=== PATIENT | female | born 1965 | race Caucasian/White ===

== ENCOUNTER 2021-11-03 05:38 | Day surgery (SDC) | payer OTHER ==
[2021-10-29 09:39] LABS: Mean Corpuscular Hemoglobin 32.3 pg (27.0-33.0); Mean Corpuscular Volume 92.2 fl (81.6-98.3); Mean Platelet Volume 11.5 fl (7.4-10.4); Platelet Count 193 10x3/uL (150-450); RBC Distribution Width 12.4 % (11.5-14.5); Red Blood Cell (RBC) Count 4.64 10x6/uL (3.90-5.03); White Blood Cell (WBC) Count 4.3 10x3/uL (3.5-10.5)
[2021-11-01 15:52] VITALS: BMI 38.9
[2021-11-03] MEDS ORDERED: Lidocaine 0.5%/Epinephrine 1:200,000 50 ml Vial ONE (06:39)
[2021-11-03] MEDS ORDERED: Lidocaine 1% w/Epinephrine 1:100K 20 ML VIAL ONE ×2 (06:40)
[2021-11-03] MEDS ORDERED: Ondansetron PF 4 MG/2 ML Vial ONE (06:46)
[2021-11-03] MEDS ORDERED: Dexamethasone 20 MG/5 ML VIAL ONE (06:46)
[2021-11-03] MEDS ORDERED: PROPOFOL 20 ML ONE (06:46)
[2021-11-03] MEDS ORDERED: Fentanyl 100 MCG/2 ML VIAL ONE ×2 (06:46→08:56)
[2021-11-03] MEDS ORDERED: Ketorolac Tromethamine 30 MG/ML VIAL ONE (06:46)
[2021-11-03] MEDS ORDERED: Midazolam HCl 2 mg/2 ml Vial ONE ×2 (06:46→07:04)
[2021-11-03] MEDS ORDERED: Lidocaine 1% MPF 2 ML VIAL ONE (06:52)
[2021-11-03] MEDS ORDERED: CEFAZOLIN 2 GM VIAL ONE (07:27)
[2021-11-03] MEDS ORDERED: Bupivacaine HCl 0.5%/Epinephrine 1:200,000/PF 30 ml Vial ONE (07:50)
[2021-11-03] MEDS ORDERED: HYDROcodone/Acetaminophen 5/325 mg Tablet ONE (10:08)
== END 2021-11-03 12:00 | disposition home or self-care (01) ==
LOC: CSHSDC 05:38
PROVIDERS: ATTEND Obstetrics & Gynecology
PROC: 0JQC0ZZ Repair Pelvic Region Subcutaneous Tissue and Fascia, Open Approach (ICD-10-PCS; principal; 2021-11-03)
DX: N81.6 Rectocele (principal); N81.10 Cystocele, unspecified; M32.9 Systemic lupus erythematosus, unspecified; M79.7 Fibromyalgia; G35 Multiple sclerosis; E11.9 Type 2 diabetes mellitus without complications; Z79.899 Other long term (current) drug therapy; Z88.0 Allergy status to penicillin; Z90.710 Acquired absence of both cervix and uterus; Z20.822 Contact with and (suspected) exposure to COVID-19
CPT/HCPCS: 85027; 86850; 86900; 86901; C1776; J0690; J1100; J1885; J2001; J2250; J2405; J2704; J3010; U0003; U0005

== ENCOUNTER 2022-05-30 09:17 | Outpatient (CLI) | payer OTHER | END 2022-05-30 09:18 | disposition home or self-care (01) | LOC: CSHMRI 09:17 | PROVIDERS: ATTEND Family Medicine | DX: S46.912D Strain of unspecified muscle, fascia and tendon at shoulder and upper arm level, left arm, subsequent encounter (principal); M75.82 Other shoulder lesions, left shoulder; M71.812 Other specified bursopathies, left shoulder; M19.012 Primary osteoarthritis, left shoulder; M75.52 Bursitis of left shoulder ==

== ENCOUNTER 2023-06-05 08:32 | Day surgery (SDC) | payer OTHER ==
[2023-06-02 09:18] VITALS: BMI 36.6
[2023-06-05] MEDS ORDERED: PROPOFOL 40 ML ONE (11:21)
[2023-06-05] MEDS ORDERED: Lidocaine 1% PF 5 ML VIAL ONE (11:21)
== END 2023-06-05 12:14 | disposition home or self-care (01) ==
LOC: CSHSDC 08:32
PROVIDERS: ATTEND Internal Medicine Gastroenterology
PROC: 0DJ08ZZ Inspection of Upper Intestinal Tract, Via Natural or Artificial Opening Endoscopic (ICD-10-PCS; principal; 2023-06-05)
DX: R10.9 Unspecified abdominal pain (principal); R11.2 Nausea with vomiting, unspecified; I10 Essential (primary) hypertension; J45.909 Unspecified asthma, uncomplicated; L93.0 Discoid lupus erythematosus; E66.9 Obesity, unspecified; M79.7 Fibromyalgia; Z98.890 Other specified postprocedural states; Z86.010 Personal history of colon polyps; Z88.0 Allergy status to penicillin; Z79.899 Other long term (current) drug therapy; Z68.36 Body mass index [BMI] 36.0-36.9, adult
CPT/HCPCS: J2704

== ENCOUNTER 2025-04-11 14:49 | Outpatient (CLI) | payer BC, OTHER ==
[2025-04-11 15:29] LABS: Hematocrit 38.1 % (34.9-44.5); Hemoglobin 12.8 g/dL (12.0-15.5); Mean Corpuscular Hemoglobin 29.7 pg (27.0-33.0); Mean Corpuscular Volume 88.4 fL (81.6-98.3); Platelet Count 196 10x3/uL (150-450); Red Blood Cell (RBC) Count 4.31 10x6/uL (3.90-5.03); White Blood Cell (WBC) Count 4.65 10x3/uL (3.5-10.5)
== END 2025-04-11 14:50 | disposition home or self-care (01) ==
LOC: CSHLAB 14:49
PROVIDERS: ATTEND Obstetrics & Gynecology
DX: Z01.812 Encounter for preprocedural laboratory examination (principal); N39.3 Stress incontinence (female) (male)
CPT/HCPCS: 85027; 86850; 86900; 86901

== ENCOUNTER 2025-04-15 07:17 | Observation (INO) | payer BC ==
[2025-04-11 15:08] VITALS: BMI 35.6
[2025-04-15] MEDS ORDERED: Gabapentin 300 MG CAP ONE (07:47)
[2025-04-15] MEDS ORDERED: Famotidine/PF 20 mg/2ml Vial ONE (07:49)
[2025-04-15] MEDS ORDERED: Lidocaine 1% w/Epinephrine 1:200K 30 ML VIAL ONE (09:31)
[2025-04-15] MEDS ORDERED: PROPOFOL 20 ML ONE (09:33)
[2025-04-15] MEDS ORDERED: Ciprofloxacin Lactate/D5W 400 MG in Premix 1 BAG IVPB SCH (10:00)
[2025-04-15] MEDS ORDERED: HYDROcodone/Acetaminophen 5/325 mg Tablet ONE (12:22)
[2025-04-15] MEDS ORDERED: Nitroglycerin 0.4 MG TAB (25 Tab Bottle) SL PRN (17:12)
[2025-04-15] MEDS ORDERED: Furosemide 40 MG TAB PO PRN (17:12)
[2025-04-15] MEDS ORDERED: Bisacodyl 10 MG SUPP PR PRN (17:13)
[2025-04-15] MEDS ORDERED: Ondansetron PF 4 MG/2 ML Vial IVP PRN (17:13)
[2025-04-15] MEDS: Methocarbamol 500 MG TAB PO SCH (21:20)
[2025-04-15] MEDS: Pantoprazole 40 MG DR.TAB PO SCH (21:20)
[2025-04-15] MEDS: Metoprolol Succinate XL 50 MG ER.TAB PO SCH (21:20)
[2025-04-15] MEDS: QUEtiapine 25 MG TAB PO SCH (21:20)
[2025-04-15] MEDS ORDERED: Ibuprofen 800 MG TAB PO SCH (22:00)
[2025-04-16 03:52] LABS: Hematocrit 35.8 % (34.9-44.5); Hemoglobin 12.2 g/dL (12.0-15.5); Mean Corpuscular Hemoglobin 29.8 pg (27.0-33.0); Mean Corpuscular Volume 87.3 fL (81.6-98.3); Platelet Count 165 10x3/uL (150-450); Red Blood Cell (RBC) Count 4.10 10x6/uL (3.90-5.03); White Blood Cell (WBC) Count 6.64 10x3/uL (3.5-10.5)
[2025-04-16] MEDS: Losartan 25 MG TAB PO SCH (08:59)
[2025-04-16] MEDS: Acetaminophen 325 MG TAB PO PRN (12:46)
[2025-04-16 20:39] VITALS: BP 129/76; TEMP 97.6
== END 2025-04-16 20:00 | disposition home or self-care (01) ==
LOC: CSHSDC 07:17 → CSHPP 15:48
PROVIDERS: ADMIT Obstetrics & Gynecology; ATTEND Obstetrics & Gynecology
PROC: 0TSD4ZZ Reposition Urethra, Percutaneous Endoscopic Approach (ICD-10-PCS; principal; 2025-04-15)
DX: N39.3 Stress incontinence (female) (male) (principal); I10 Essential (primary) hypertension; I25.10 Atherosclerotic heart disease of native coronary artery without angina pectoris; K21.9 Gastro-esophageal reflux disease without esophagitis; E11.9 Type 2 diabetes mellitus without complications; E66.9 Obesity, unspecified; Z68.36 Body mass index [BMI] 36.0-36.9, adult; Z90.710 Acquired absence of both cervix and uterus; Z98.890 Other specified postprocedural states; Z88.0 Allergy status to penicillin
CPT/HCPCS: 36415; 85027; C1771; J0744; J1100; J1308; J2704

== ENCOUNTER 2025-05-05 13:08 | Inpatient (IN) | payer BC ==
[2025-05-05 14:09] VITALS: BMI 32.9
[2025-05-05 14:57] LABS: #Basophils 0.06 10x3/uL (0.0-0.2); #Eosinophils 0.18 10x3/uL (0.0-0.5); #Monocytes 0.29 10x3/uL (0.0-1.1); #Neutrophils 2.98 10x3/uL (1.5-8.4); %Basophils 1.2 % (0.0-2.0); %Eosinophils 3.5 % (0.0-6.0); %Lymphocytes 30.5 % (18.0-47.0); %Monocytes 5.7 % (0.0-10.0); %Neutrophils 58.7 % (40.0-75.0); Hematocrit 40.0 % (34.9-44.5); Hemoglobin 13.2 g/dL (12.0-15.5); Mean Corpuscular Hemoglobin 29.2 pg (27.0-33.0); Mean Corpuscular Volume 88.5 fL (81.6-98.3); Platelet Count 277 10x3/uL (150-450); Red Blood Cell (RBC) Count 4.52 10x6/uL (3.90-5.03); White Blood Cell (WBC) Count 5.08 10x3/uL (3.5-10.5)
[2025-05-05 15:03] LABS: ALT (SGPT) 22 U/L (Less than 34); AST (SGOT) 42 U/L (11-34); Albumin 3.6 g/dL (3.1-4.5); Alkaline Phosphatase 88 U/L (40-110); Anion Gap 13 mmol/L (10-20); BUN (Urea Nitrogen) 9 mg/dL (9.8-20.1); Bilirubin, Total 0.3 mg/dL (0.3-1.2); Calc. Creatinine Clearance 117 mL/min (70-130); Calcium 9.8 mg/dL (7.8-10.44); Carbon Dioxide 19 mmol/L (22-29); Chloride 113 mmol/L (98-107); Globulin 3.6 g/dL (2.4-3.5); Glucose 102 mg/dL (70-105); Potassium 3.8 mmol/L (3.5-5.1); Sodium 141 mmol/L (136-145)
[2025-05-05] MEDS ORDERED: Nitroglycerin 0.4 MG TAB (25 Tab Bottle) SL PRN (15:20)
[2025-05-05] MEDS ORDERED: Furosemide 40 MG TAB PO PRN (15:20)
[2025-05-05] MEDS: Metoprolol Succinate XL 50 MG ER.TAB PO SCH (19:55)
[2025-05-05] MEDS: QUEtiapine 25 MG TAB PO SCH (19:55)
[2025-05-05] MEDS: Methocarbamol 500 MG TAB PO SCH (20:11)
[2025-05-05] MEDS: Ondansetron PF 4 MG/2 ML Vial IVP PRN (20:23)
[2025-05-06] MEDS: Aspirin Chewable 81 MG TAB PO SCH (08:53)
[2025-05-06] MEDS: Multivitamin W/ Minerals 1 TAB PO SCH (08:53)
[2025-05-06] MEDS: Pantoprazole 40 MG DR.TAB PO SCH (08:53)
[2025-05-06] MEDS: Losartan 25 MG TAB PO SCH (08:54)
[2025-05-06] MEDS: Acetaminophen 325 MG TAB PO PRN (11:31)
[2025-05-07 08:41] VITALS: BP 102/63; TEMP 98.9
== END 2025-05-07 09:07 | disposition home or self-care (01) | DRG 690 ==
LOC: OBSVTOIN 13:33 → CSHTELE 13:33
PROVIDERS: ADMIT Obstetrics & Gynecology; ATTEND Obstetrics & Gynecology
DX: N39.0 Urinary tract infection, site not specified (principal); E66.9 Obesity, unspecified; M19.90 Unspecified osteoarthritis, unspecified site; B96.20 Unspecified Escherichia coli [E. coli] as the cause of diseases classified elsewhere; I10 Essential (primary) hypertension; Z98.890 Other specified postprocedural states; Z90.49 Acquired absence of other specified parts of digestive tract; Z98.84 Bariatric surgery status; Z79.899 Other long term (current) drug therapy; Z88.0 Allergy status to penicillin
CPT/HCPCS: 80053; 85025; J1335; J2185; J2405